=== PATIENT | male | born 1965 | race Caucasian/White ===

== ENCOUNTER 2019-07-17 07:49 | Emergency (ER) | payer MEDICARE ==
--- NOTE | 2019-07-17 08:04 | ED Physician Documentation ---
PD HPI LOWER EXT INJURY - Stated complaint Stated Complaint: KNEE PX - Chief complaint Chief Complaint: Ext Problem - History obtained from History obtained from: Patient - History of Present Illness PD HPI LOW EXT INJURY LOCATION: Right, Knee Type of injury: Twist (he was ziplining and caught foot on ground as he was coming in and had forceful valgus twist of the knee. Pain medially and hurts with ROM and bending.) Where injury occurred: Other (friends house) Timing - onset: Yesterday Timing - details: Abrupt onset, Still present Worsened by: Moving, Palpating, Other (bending knee) Associated symptoms: No: Weakness, Numbness, Swelling Contributing factors: No: Prior ortho surgery Similar symptoms before: Has not had sx before Review of Systems Skin: denies: Abrasion (s), Laceration (s) Musculoskeletal: reports: Joint pain (right knee). denies: Back pain Neurologic: denies: Focal weakness, Numbness PD PAST MEDICAL HISTORY - Past Medical History Past Medical History: No - Allergies Allergies/Adverse Reactions: Allergies Allergy/AdvReac Type Severity Reaction Status Date / Time No Known Drug Allergies Allergy Verified 07/17/19 07:54 - Social History Does the pt smoke?: Yes Smoking Status: Current every day smoker PD ED PE NORMAL - Vitals Vital signs reviewed: Yes - General General: Alert and oriented X 3, No acute distress, Well developed/nourished - Derm Derm: Normal color, Warm and dry - Extremities Extremities: Other (right knee without effusion. no pain nor laxity with cruciate testing. Apley not painful. Valgus stress painful and possible some widening of joint compared to left knee. Tender medial joint line, not shifting. ) - Neuro Neuro: Alert and oriented X 3, No motor deficit, No sensory deficit Results - Vitals Vitals: Vital Signs - 24 hr 07/17/19 07/17/19 07:52 09:39 Temperature 36.6 C 36.6 C Heart Rate 58 L 56 L Respiratory 19 16 Rate Blood Pressure 146/95 H 144/82 H O2 Saturation 99 100 Oxygen O2 Source Room air - Rads (name of study) right knee Radiology: Prelim report reviewed (no fractures), See rad report PD MEDICAL DECISION MAKING - ED course Complexity details: considered differential (seems isolated MCL injury, with possible partial tear. ), d/w patient Departure - Departure Disposition: 01 Home, Self Care Clinical Impression: MCL sprain of right knee Qualifiers: Encounter type: initial encounter Qualified Code(s): S83.411A - Sprain of medial collateral ligament of right knee, initial encounter Record reviewed to determine appropriate education?: Yes Instructions: ED Sprain Knee Collateral Ligaments Follow-Up: Michi Pérez MD [Provider Admit Priv/Credential] - Comments: Ibuprofen or naproxen twice daily for the next week for inflammation and pain. Add Tylenol if needed. Use the knee brace when up and around for the next 2-3 weeks to help support the collateral ligament while its healing. Recheck if not improving well over the next 1 to 2 weeks. Discharge Date/Time: 07/17/19 09:49
--- NOTE | 2019-07-17 09:18 | XRAY Report ---
Reason: valgus injury right knee; pain medially Procedure Date: 07/17/2019 Accession Number: [id number] / [id number] Procedure: XR - Knee 3 View RT CPT Code: FULL RESULT: EXAM: RIGHT KNEE RADIOGRAPHY EXAM DATE: 07/17/2019 09:09 AM. CLINICAL HISTORY: Valgus injury right knee; pain medially. COMPARISON: None. TECHNIQUE: 3 views. FINDINGS: Bones: No acute fracture or bony lesion. Joints: Trace right knee effusion. No dislocation. No significant joint space narrowing. Soft Tissues: No radiopaque foreign bodies. IMPRESSION: 1. No acute osseous abnormalities. 2. Trace right knee effusion. [facility]
[2019-07-17 09:40] VITALS: BP 144/82
== END 2019-07-17 09:49 | disposition home or self-care (01) ==
LOC: ED 07:49
DX: F17.200 Nicotine dependence, unspecified, uncomplicated (principal); S83.411A Sprain of medial collateral ligament of right knee, initial encounter; X50.1XXA Overexertion from prolonged static or awkward postures, initial encounter; Y93.59 Activity, other involving other sports and athletics played individually; Y92.009 Unspecified place in unspecified non-institutional (private) residence as the place of occurrence of the external cause
CPT/HCPCS: 99282; 99283